=== PATIENT | female | born 1970 ===

== ENCOUNTER 2024-11-12 10:40 | Outpatient (AMB) | payer OTHER, SELFPAY ==
--- NOTE | 2024-11-12 10:44 | A.OFFVIS_ITS ---
VS Expanded 11/12/24 10:46 11/13/24 11:38 Height 4 ft 9 in 4 ft 9 in Weight 135 lb 5.821 oz 135 lb BMI 29.3 29.2 Intake Visit Reasons: Wt gain Nutrition Presentation Details: Pt presents for MNT for obesity Pt reports having gained about 10 lbs over a year Tu[ical meal intake 12- pm rice/stauffer/chicken, water, salad on and off 6pm : same as lunch 10 cereal frosted flakes/milk lactose free 1% food frequency fruits: 0-1/wk ve-2x /wk dairy :1-2x/wk protein: red meats lead to stomach pain (reducing) fish - 1-2 x/wk, poultry majority of the time and eggs snacks: chips 2 x/wk , crackers, milk physical activity: sedentary etoh/smoking- denies IPJ-Wnbjeax-Vz.Jeor Equation Height: 4 ft 9 in Weight: 135 lb Resting Metabolic Rate: 1094.85 Calculated Activity Level: Sedentary Calories Needed to Maintain Weight: 1313.82 Diagnosis Nutrition problem #1: excessive energy intake and food nutri know defi As related to (etiology) #1: diagnosis As evidenced by (sign/symptom) #1: high BMI and weight gain Assessment & Plan Assessment & Plan (1) Weight gain: Code(s): R63.5 - Abnormal weight gain Category: Medical Plan: Wt: 61 Kg ( 11/23 ) Est kcal needs as per MSJ: 8886-9019 (40% carb, 30% protein/fat) Est fluid needs as per 25-30 ml/d: 1800 Est prot per day as per 1 g/kg bw: 60 Recommend fiber intake : 8-10 g per day and gradually increase to 25-28 g per day for women and 35-38 g for men or as tolerated Recommend sodium intake per day : less than 2300 mg Educated patient on: ( R = reviewed V = verbalizes understanding N/R = needs review N/A = not applicable * Food sources of carbohydrate, adequate serving sizes and its role in various health conditions: R * Differences between complex carbohydrates a simple carbohydrates, role of fiber in diet: R * Lean protein sources of foods: R * Differences between types of fats and role in diet (mono on saturated fat fatty acids, saturated fatty acids, trans fats): R V N/R * Food sources of sodium in salt and healthy modifications for heart health in kidney health: R V R/V * Vitamins and minerals: R V N/R * Healthy plate method concept: R * Physical activity: Benefits a precaution: R V N/R * Patient Instructions: Practice mindful eating working on following healthy plate method, including non starchy vegetables with the meal and reducing total carbs to less than 45 g or less per meal, have a fruit or yogurt as a snack 2 x/day r - see meals ideas as refreence Coding Level of Care Code Nutr Indiv Intake (04909) Diagnoses Weight gain R63.5 Time Spent (min) 30
[2024-11-12 10:46] VITALS: BMI 29.3
--- OUTSIDE RECORDS SUMMARY | 2024-11-12 11:34 | XMS_ITS | Clinical Summary ---
Author Organization [facility] [address] [place] [address] [place] [phone] Phone Care Team Providers Care Pharmacy Technician Assistant Name Role Phone Christina Caballero MD Primary Care Provider [phone] Allergies Active Allergy Reactions Criticality Noted Date Comments Penicillin G Benzathine Hives 05/28/2005 Hives/Urticaria Penicillins Rash 01/22/2019 Other Reaction(s): UNKNOWN Medications albuterol HFA (PROAIR HFA ; PROVENTIL HFA ; VENTOLIN HFA) 90 mcg/actuation inhaler Inhale 2 Puffs into the lungs every 4 hours as needed for Cough or Wheezing for up to 60 days. 3 Active fexofenadine (WALKER) 180 mg tablet Take 1 tablet (180 mg total) by mouth 1 (one) time each day. 3 Active triamcinolone (NASACORT) 55 mcg nasal inhaler 55 mcg by Nasal route daily. 3 Active Nystop 100,000 unit/gram powder APPLY TOPICALLY ON THE RASH(UNDER BREAST)BID FOR 7-10 DAYS 30 g 3 5 Active amLODIPine (NORVASC) 5 mg tablet Take 1 tablet (5 mg total) by mouth 1 (one) time each day. 90 tablet 1 5 Active diclofenac (Voltaren Arthritis Pain) 1 % topical gel Apply 4 g topically 2 (two) times a day. 240 g 1 5 12/03/19 25 Active Active Problems Problem Noted Date Diagnosed Date Hoarseness 10/20/2021 Overview (04/11/2024): Last Assessment & Plan: Given her hoarseness due to postnasal drip a referral to ENT for indirect laryngoscopy have been done. Postnasal drip 10/20/2021 Overview (04/11/2024): Last Assessment & Plan: Postnasal drip is not under control. I will change Zyrtec to Walker 1 tablet every day and also I will add Singulair 10 mg p.o. every day. Reactive airway disease 10/20/2021 Overview (04/11/2024): Last Assessment & Plan: Continue with albuterol as needed. I explained her that once the postnasal drip is controlled her cough will improve also. 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 [facility] Home sleep test 08/12/2021; weight 130; BMI 27. AHI 13. 29 obstructive apneas, 4 central apneas and 24 hypopneas. Average oxygen saturation 95% with oxygen robert 71%. Obstructive sleep apnea-mild with mostly obstructive apneas and hypopneas without nocturnal hypoxemia based on 2021 home sleep test previous study indicates use of MAD during study uncertain whether or not this is the case with the current study. Last Assessment & Plan: Advised to consider again CPAP. If not weight loss may benefit her. The apnea is mild. 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), simple virilizing ([facility] V24) 10/28/2005 Anxiety state 10/28/2005 Encounters Date Type Department Care Team Description 11/08/2024 3:45 PM EDT Office Visit Orthopedic Surgery [place] [phone] [phone] Naseem Tavera DPM Metatarsalgia of right foot (Primary Dx); Neuroma; Dermatofibroma of right lower leg 10/04/2024 2:30 PM EDT [facility] [address] [place] [phone] Kalpana Franks CNM Encounter for gynecological examination without abnormal finding (Primary Dx); Screen for STD (sexually transmitted disease); Encounter for screening for viral disease; Venereal disease screening; Weight gain 10/03/2024 1:45 PM EDT Office Visit Orthopedic Surgery [facility] [address] [phone] Naseem Tavera DPM Exostosis of right foot (Primary Dx); Peripheral venous insufficiency; Metatarsalgia of both feet; Neuroma 09/27/2024 4:30 PM EDT Office Visit Adult Medicine [address] [phone] Christina Caballero MD PE (physical exam), annual (Primary Dx); Screening mammogram for breast cancer from Last 3 Months Immunizations Name Administration Dates Next Due Td Tetanus diptheria (Tdvax) 7yo and older 10/26 Tdap Tetanus diptheria acell ular pertussis (Boostrix; Adacel) 7yo and older 11/27/2007 Surgical History Surgery Date Site/Laterality Comments SECTION PROCEDURE: HISTORICAL DELIVERY; COMMENT: 1994 TUBAL LIGATION PROCEDURE: HISTORICAL TUBAL LIGATION; COMMENT: 1994 ESOPHAGOGASTRODUODENOSCOPY 11/14/14 PROCEDURE: [place] ESOPHAGOGASTRODUODENOSCOPY TRANSORAL DIAGNOSTIC; COMMENT: gastric ulcer and gastritis; h. pyl neg Medical History Medical History Date Comments Headache(784.0) DX:Headache(784. 0) Migraine with aura, without mention of intractable migraine without mention of status migrainosus 10/28/2005 DX:Migraine with aura, witho ut mention of intractable migraine without mention of status migrainosus Other adrenal hypofunction 10/28/2005 DX:Ot her adrenal hypofunction Alopecia, unspecified 08/19/2006 DX:Alopeci a, unspecified; COMMENT: Ivker Anxiety state, unspecified 10/28/2005 DX:An xiety state, unspecified CKD (chronic kidney disease) stage 3, GFR 30-59 ml/min (CMS/HCC V24, CMS/HCC V28) 05/19/2020 DX:CKD (chronic kidney disea se) stage 3, GFR 30-59 ml/min ([facility]) Family History Medical History Relation Name Comments Cervical cancer Aunt 1 Other: cancer,other Aunt 2 maternal aunt ? primary Other: bone cancer Aunt 3 maternal aunt; also brain tumor ? malignant Heart attack Brother 1 Alcohol/Drug Brother 2 Asthma Brother 2 Depression Brother 2 Other cancer Father Other: cancer,other Maternal Grandfather ? primary Other: old age Maternal Grandmother Other cancer Mother Throat-smoker Breast cancer Mother's side cousin bilateral wit h mets-dtr of #6 Lung cancer Paternal Grandmother Other: stabbed Sister 1 teen Cervical polyp Sister 2 Other: heart attack Uncle maternal uncle Relation Name Status Comments Aunt 1 Alive cervical cancer Aunt 2 Aunt 3 Brother 1 Other no contact Brother 2 Alive Father Maternal Grandfather Maternal Grandmother Mother Mother's side cousin Alive Other ma cousin Alive Paternal Grandmother Sister 1 Sister 2 Alive cervical dyspla carroll Uncle Social History Tobacco Use Types Packs/Day Years Used Date Smoking Tobacco: Former Cigarettes Q uit: 11/26/2005 Smokeless Tobacco: Never Tobacco Cessation:Counseling Given: Not Answered Alcohol Use Standard Drinks/Week Comments No 0 (1 standard drink = 0.6 oz pur e alcohol) Comments No Sex and Gender Information Value Date Recorded Sex Assigned at Not on file Legal Sex Female 3:49 AM EST Gender Identity Not on file Sexual Orientation Not on file Obstetrics History Para Term AB IAB SAB Ectopic Multiple Livin g Live Births 2 2 1 1 2 2 Date Outcome GA Total Labor Labor/2nd/3rd Weight Sex Type Anes PTL Lela A1 A5 Name Clin 989 34w 0d F Vag-S pont Living Delivery Location:[facility] 995 Term 40w 0d M CS-Un spec Living Delivery Location:[facility] Last Filed Vital Signs Vital Sign Reading Time Taken Comments Blood Pressure 121/80 10/04/2024 2:32 PM EDT Pulse 78 10/04/2024 2:32 PM EDT Temperature 36.6 C (97.8 F) 09/27/2024 4:30 PM EDT Respiratory Rate 18 10/04/2024 2:32 PM EDT Oxygen Saturation 97% 09/27/2024 4:30 PM EDT Inhaled Oxygen Concentration - - Weight 61.1 kg (134 lb 12.8 oz) 10/04/2024 2:32 PM EDT Height 144.8 cm (4' 9 ) 10/04/2024 2:32 PM EDT Body Mass Index 29.17 10/04/2024 2:32 PM EDT Plan of Treatment Upcoming Encounters Date Type Department Care Team (Late st Contact Info) Description 12/25/2024 2:15 PM EDT Office Visit Orthopedic Surgery - [place] [address] [phone] Naseem Tavera, DPM [address] [address] 04/02/2025 1:15 PM EST Office Visit Adult Medicine [address] [phone] Christina Caballero MD [address] [place] [address] 04/05/2025 8:30 AM EST Office Visit Adult Medicine [address] [phone] Christina Caballero MD [address] [place] [phone] Health Maintenance Due Date Last Done Comments COVID-19 Vaccine (#1) 1976 Hepatitis B Vaccines (1 of 3 - 19+ 3-dose series) 1990 Zoster Vaccines (1 of 2) 1990 Social Influencers of Health Screening 04/10/2022 Breast Cancer Screening 06/21/2024 06/21/19, 06/21/2022, 06/16/2021, Additional history exists Influenza Vaccine (#1) 2024 Pneumococcal Vaccine: 50+ Years (1 of 2 - PCV) 09/27/2025 Postponed from 1990 (Patient Refused) Depression Screening 09/29/2025 09/29/2024 Hypertension/CHF/CAD Annual BMP Blood Test 10/01/2025 10/01/2024, 01/31/2024, 01/31/2024 Cervical Cancer Screening: HPV 05/28/2027 05/28/2022 DTaP,Tdap,and Td Vaccines (3 - Td or Tdap) 10/27/2027 10/26/2017, 11/27/2007 Cholesterol Screening (Lipid Panel) 10/01/2029 10/01/2024, 07/29/2023 Colorectal Cancer Screening: Colonoscopy 11/10/2033 11/11/2023, 11/11/2023 HIV Screening Completed 05/28/2022 Hepatitis C Screening Completed 05/28/2022 HIB Vaccines Aged Out No longer eligi ble based on patient's age to complete this topic HPV Vaccines Aged Out No longer eligi ble based on patient's age to complete this topic Hepatitis A Vaccines Aged Out No long er eligible based on patient's age to complete this topic IPV Vaccines Aged Out No longer eligi ble based on patient's age to complete this topic MMR Vaccines Aged Out No longer eligi ble based on patient's age to complete this topic Meningococcal ACWY Vaccine Aged Out N o longer eligible based on patient's age to complete this topic Meningococcal B Vaccine Aged Out No l onger eligible based on patient's age to complete this topic RSV Immunization Patients Under 20 months Aged Out No longer eligible based on patient's age to complete this topic Varicella Vaccines Aged Out No longer eligible based on patient's age to complete this topic Procedures Procedure Name Priority Date/Time Associated Diagnosis Comments CHLAMYDIA TRACHOMATIS AND NEISSERIA GONORRHOEAE PCR Routine 10/04/2024 3:50 PM EDT Screen for STD (sexually transmitted disease) TRICHOMONAS VAGINALIS ANTIGEN Routine 10/04/2024 3:50 PM EDT Screen for STD (sexually transmitted disease) CBC WITH AUTO DIFFERENTIAL Routine 10/01/2024 8:08 AM EDT PE (physical exam), annual CBC AND DIFFERENTIAL Routine 10/01/2024 8:08 AM EDT PE (physical exam), annual COMPREHENSIVE METABOLIC PANEL Routine 10/01/2024 8:08 AM EDT PE (physical exam), annual LIPID PANEL WITH REFLEX TO DIRECT LDL Routine 10/01/2024 8:08 AM EDT PE (physical exam), annual COLONOSCOPY Routine 11/11/2023 SCREENING MAMMOGRAPHY BI 2-VIEW BREAST INC CAD Routine 06/21/2022 8:21 AM EST Encounter for screening mammogram for malignant neoplasm of breast HPV Routine 05/28/2022 HEPATITIS C SCREENING Routine 05/28/2022 HIV SCREENING Routine 05/28/2022 from Last 3 Months or Most Recently Relevant to Health Maintenance Results * Trichomonas vaginalis antigen (10/04/2024 3:50 PM EDT) Trichomonas vaginalis Negative Negative 10/04/2024 8:10 PM EDT [facility] Swab Vaginal structure / Unknown Non-blood Collection / Unknown 10/04/2024 3:50 PM EDT 10/04/2024 3:50 PM EDT us Kalpana Franks [facility] MICROBIOLOGY - GENERAL ORDERABLES Final Result Performing Organization Address [facility]/ZIP Co de Phone Number [facility] [address] [place] [address], [place] [phone] * Chlamydia trachomatis and Neisseria gonorrhoeae molecular study (10/04/2024 3:50 PM EDT) Pathologist [facility] Neisseria gonorrhoeae PCR Negative Negative LAB MOLECULAR DIAGNOSTICS METHOD 10/05/2024 9:03 AM EDT [facility] Chlamydia trachomatis PCR Negative Negative LAB MOLECULAR DIAGNOSTICS METHOD 10/05/2024 9:03 AM EDT [facility] Swab Vaginal structure / Unknown Non-blood Collection / Unknown 10/04/2024 3:50 PM EDT 10/04/2024 3:50 PM EDT us Kalpana Franks [facility] MICROBIOLOGY - GENERAL ORDERABLES Final Result Performing Organization Address [facility]/ZIP Co de Phone Number [facility] [address] [place] [address], [place] [phone] * Lipid panel with reflex to direct LDL (10/01/2024 8:08 AM EDT) Pathologist [facility] Cholesterol 169 0 - 200 mg/dL LAB CHEMISTRY METHOD 10/01/2024 10:59 AM EDT [facility] Triglycerides 133 0 - 150 mg/dL LAB CHEMISTRY METHOD 10/01/2024 10:59 AM EDT [facility] HDL 48 >=40 mg/dL LAB CHEMISTRY METHOD 10/01/2024 10:59 AM EDT [facility] LDL Calculated 94 0 - 100 mg/dL LAB CHEMISTRY METHOD 10/01/2024 10:59 AM EDT [facility] VLDL Cholesterol Neri 26.6 mg/dL LAB CHEMISTRY METHOD 10/01/2024 10:59 AM EDT [facility] Non HDL Chol. (LDL+VLDL) 121 <145 mg/dL LAB CHEMISTRY METHOD 10/01/2024 10:59 AM EDT [facility] Chol/HDL Ratio 3.5 0.0 - 4.4 LAB CHEMISTRY METHOD 10/01/2024 10:59 AM EDT [facility] Blood Venous blood specimen / Unknown Venipuncture / Unknown 10/01/2024 8:08 AM EDT 10/01/2024 8:08 AM EDT us Christina Caballero MD LAB BLOOD ORDERABLES Final Resul t [facility] [address] [place] [address], * (ABNORMAL) CBC auto differential (10/01/2024 8:08 AM EDT) WBC 9.3 4.8 - 10.8 [facility] HEMETOLOGY METHOD 10/01/2024 10:52 AM [facility] RBC 5.20(H) 3.80 - 4.80 M/mcL LAB HEMETOLOGY METHOD 10/01/2024 10:52 AM EDT [facility] Hemoglobin 15.1 11.5 - 16.0 g/dL LAB HEMETOLOGY METHOD 10/01/2024 10:52 AM [facility] Hematocrit 46.8 35.0 - 47.0 % LAB HEMETOLOGY METHOD 10/01/2024 10:52 AM [facility] MCV 90.5 79.0 - 98.0 FL LAB HEMETOLOGY METHOD 10/01/2024 10:52 AM [facility] MCH 29.2 27.0 - 32.0 pcg LAB HEMETOLOGY METHOD 10/01/2024 10:52 AM [facility] MCHC 32.3 32.0 - 37.0 g/dL LAB HEMETOLOGY METHOD 10/01/2024 10:52 AM [facility] RDW 12.6 11.0 - 15.0 % LAB HEMETOLOGY METHOD 10/01/2024 10:52 AM [facility] Platelets 321 130 - 400 K/mcL LAB HEMETOLOGY METHOD 10/01/2024 10:52 AM [facility] MPV 10.3 7.0 - 11.0 FL LAB HEMETOLOGY METHOD 10/01/2024 10:52 AM [facility] NRBC 0.0 <1.0 % LAB HEMETOLOGY METHOD 10/01/2024 10:52 AM [facility] NRBC Absolute 0.00 <0.10 K/mcL LAB HEMETOLOGY METHOD 10/01/2024 10:52 AM [facility] Neutrophils Relative 49.6 % LAB HEMETOLOGY METHOD 10/01/2024 10:52 AM [facility] Lymphocytes Relative 40.6 % LAB HEMETOLOGY METHOD 10/01/2024 10:52 AM [facility] Monocytes Relative 6.0 % LAB HEMETOLOGY METHOD 10/01/2024 10:52 AM [facility] Eosinophils Relative 2.9 % LAB HEMETOLOGY METHOD 10/01/2024 10:52 AM [facility] Basophils Relative 0.6 % LAB HEMETOLOGY METHOD 10/01/2024 10:52 AM [facility] Immature Granulocytes Relative 0.3 % LAB HEMETOLOGY METHOD 10/01/2024 10:52 AM [facility] Neutrophils Absolute 4.61 1.50 - 7.00 K/mcL LAB HEMETOLOGY METHOD 10/01/2024 10:52 AM EDT [facility] Lymphocytes Absolute 3.78 1.00 - 5.00 K/mcL LAB HEMETOLOGY METHOD 10/01/2024 10:52 AM EDT [facility] Monocytes Absolute 0.56 0.20 - 1.00 K/mcL LAB HEMETOLOGY METHOD 10/01/2024 10:52 AM EDT [facility] Eosinophils Absolute 0.27 0.00 - 0.50 [facility] HEMETOLOGY METHOD 10/01/2024 10:52 AM EDT [facility] Basophils Absolute 0.06 0.00 - 0.20 K/mcL LAB HEMETOLOGY METHOD 10/01/2024 10:52 AM EDT [facility] Immature Granulocytes Absolute 0.03 0.00 - 0.03 [facility] HEMETOLOGY METHOD 10/01/2024 10:52 AM EDT [facility] Blood Venous blood specimen / Unknown Venipuncture / Unknown 10/01/2024 8:08 AM EDT 10/01/2024 8:08 AM EDT us Christina Caballero MD LAB BLOOD ORDERABLES Final Resul t [facility] [address] [place] [address], * Comprehensive metabolic panel (10/01/2024 8:08 AM EDT) Sodium 138 133 - 145 mmol/L LAB CHEMISTRY METHOD 10/01/2024 10:59 AM EDT [facility] Potassium 4.2 3.5 - 5.5 mmol/L LAB CHEMISTRY METHOD 10/01/2024 10:59 AM EDT [facility] Chloride 105 96 - 110 mmol/L LAB CHEMISTRY METHOD 10/01/2024 10:59 AM [facility] CO2 30 21 - 32 mmol/L LAB CHEMISTRY METHOD 10/01/2024 10:59 AM [facility] Anion Gap 3 3 - 11 LAB CHEMISTRY METHOD 10/01/2024 10:59 AM [facility] Glucose 99 70 - 100 mg/dL LAB CHEMISTRY METHOD 10/01/2024 10:59 AM [facility] BUN 8 5 - 25 mg/dL LAB CHEMISTRY METHOD 10/01/2024 10:59 AM [facility] Creatinine 0.84 0.50 - 1.10 mg/dL LAB CHEMISTRY METHOD 10/01/2024 10:59 AM [facility] eGFR 83 >=60 mL/min/1. 73m2 LAB CHEMISTRY METHOD 10/01/2024 10:59 AM [facility] Comment:Calculation based on the Chronic Kidney Disease Epidemiology Collaboration (CKD-EPI) equation refit without adjustment for race. BUN/Creatinine Ratio 9.5 LAB CHEMISTRY METHOD 10/01/2024 10:59 AM [facility] Calcium 9.0 8.5 - 10.5 mg/dL LAB CHEMISTRY METHOD 10/01/2024 10:59 AM [facility] AST (SGOT) 13 10 - 42 unit/L LAB CHEMISTRY METHOD 10/01/2024 10:59 AM [facility] ALT (SGPT) 23 10 - 60 unit/L LAB CHEMISTRY METHOD 10/01/2024 10:59 AM [facility] Alkaline Phosphatase 94 42 - 121 unit/L LAB CHEMISTRY METHOD 10/01/2024 10:59 AM [facility] Total Protein 7.6 6.0 - 8.0 g/dL LAB CHEMISTRY METHOD 10/01/2024 10:59 AM [facility] Albumin 3.7 3.2 - 5.0 g/dL LAB CHEMISTRY METHOD 10/01/2024 10:59 AM EDT [facility] Total Bilirubin 0.7 0.0 - 1.4 mg/dL LAB CHEMISTRY METHOD 10/01/2024 10:59 AM EDT [facility] Blood Venous blood specimen / Unknown Venipuncture / Unknown 10/01/2024 8:08 AM EDT 10/01/2024 8:08 AM EDT Christina Caballero MD LAB BLOOD ORDERABLES Final Resul t [facility] [address] [place] [address], [place] [phone] * Colonoscopy (11/11/2023) HM Colonoscopy abstracted,no interpretation Anatomical Region Laterality Modality Other Historical Provider HEALTH MAINTENANCE Final Result * SCREENING MAMMOGRAPHY BI 2-VIEW BREAST INC CAD (06/21/2022 8:21 AM EST) Anatomical Region Laterality Modality Radiographic Eladia ging 06/16/2021 8:08 AM EST Narrative 06/21/2022 8:39 AM EST This is a summary report. The complete report is available in the patient's medical record. If you cannot access the medical record, please contact the sending organization for a detailed fax or copy. Full field digital screening 2D and 3D mammography, reviewed with CAD and compared to previous mammograms dating back to 01/30/2018 most recent of 06/16/2021. The breasts are composed of fatty and fibroglandular tissue. No suspicious mass, architectural distortion or suspicious calcifications are identified. Punctate microcalcifications in the upper outer right breast are unchanged. IMPRESSION: : No mammographic evidence of malignancy. BIRADS 2-benign 5 year breast cancer risk assessment 0.5 % Lifetime breast cancer risk assessment 4.5 % Breast cancer risk category Low (<15%) Procedure Note Lien Solorio MD - 06/06/2023 This is a summary report. The complete report is available in thepatient's medical record. If you cannot access the medical record, pleasecontact the sending organization for a detailed fax or copy. Full field digital screening 2D and 3D mammography, reviewed with CAD andcompared to previous mammograms dating back to 01/30/2018 most recent of06/16/2021. The breasts are composed of fatty and fibroglandular tissue.No suspicious mass, architectural distortion or suspicious calcificationsare identified. Punctate microcalcifications in the upper outer right breast areunchanged. IMPRESSION: : No mammographic evidence of malignancy. BIRADS 2-benign 5 year breast cancer risk assessment 0.5 % Lifetime breast cancer risk assessment 4.5 % Breast cancer risk category Low (<15%) Rebecca Osorio CNM IMG XR PROCEDURES Final Resu lt * Cervical Cancer Screening: HPV (05/28/2022) [facility] Cervical Cancer Screening: HPV abstracted,no interpretation [facility] Provider HEALTH MAINTENANCE Final Result * HIV Screening (05/28/2022) [facility] HIV Screening abstracted [facility] Provider HEALTH MAINTENANCE Final Result * Hepatitis C Screening (05/28/2022) [facility] Hepatitis C Screening abstracted [facility] Provider HEALTH MAINTENANCE Final Result from Last 3 Months or Most Recently Relevant to Health Maintenance Insurance [facility] Care Teams Pharmacy Technician Assistant Relationship Specialty Start Date End Date Christina Caballero MD NPI: [id number] [place] [id number] PCP - General Internal Medicine 06/27/24
[2024-11-13 11:38] VITALS: BMI 29.2
== END 2024-11-12 11:21 | disposition home or self-care (01) ==
LOC: HO.ENCR 10:40
PROVIDERS: PCP Internal Medicine; Visit Provider Dietitian, Registered
DX: R63.5 Abnormal weight gain (principal)

== ENCOUNTER → 2024-11-12 10:40 | Outpatient (BNVA) | payer OTHER, SELFPAY | PROVIDERS: PCP Internal Medicine; Visit Provider Dietitian, Registered | DX: R63.5 Abnormal weight gain (principal) | CPT/HCPCS: 97802 ==